=== PATIENT | male | born 1965 | race Hispanic/Latino ===

== ENCOUNTER 2024-02-26 10:27 | Inpatient (IN) | payer OTHER ==
[2024-02-26] VITALS (8 sets, daily range): BP systolic 92–103; BP diastolic 62–65; PULSE 53–56; RESP 12–19; TEMP 98–98.3; O2SAT 92–96
[~2024-02-26] VITALS: Ht 167.6 cm; Wt 54.9 kg
[2024-02-26] MEDS: SODIUM CHLORIDE 0.9% 1000ML 1,000 ML IV STA (11:27)
[2024-02-26 11:47] LABS: BASOPHILS % 0.3 % (0.0-1.0); EOSINOPHILS % 0.1 % (0.0-6.0); HEMATOCRIT 37.8 % (38.2-49.6); HEMOGLOBIN 12.1 g/dL (14.0-18.0); LYMPHOCYTES # (AUTO) 2.7 (1.0-3.2); LYMPHOCYTES % 28.3 % (18.0-39.1); MEAN CORPUSCULAR HEMOGLOBIN 30.9 pg (28-32); MEAN CORPUSCULAR VOLUME 96.7 fL (81-99); MONOCYTES # (AUTO) 0.3 (0.2-0.8); MONOCYTES % 3.6 % (4.4-11.3); NEUTROPHILS # (AUTO) 6.3 (2.1-6.9); NEUTROPHILS % 67.1 % (38.7-80.0); PLATELET COUNT 205 x10e3/uL (140-360); RED BLOOD COUNT 3.91 x10e6/uL (4.3-5.7); RED CELL DISTRIBUTION WIDTH 13.2 % (11.7-14.4); WHITE BLOOD COUNT 9.41 x10e3/uL (4.8-10.8)
[2024-02-26 11:59] LABS: INR 0.95; PROTHROMBIN TIME 13.3 seconds (11.9-14.5)
[2024-02-26] MEDS: ONDANSETRON HCL INJ 2MG/ML 2ML 2 MG/ML VIAL IV STA (12:01)
[2024-02-26 12:09] LABS: ALBUMIN 2.8 g/dL (3.5-5.0); ALBUMIN/GLOBULIN RATIO 0.4 (0.8-2.0); ANION GAP 12.9 mmol/L (8-16); BILIRUBIN,TOTAL 0.6 mg/dL (0.2-1.2); CALCIUM 8.8 mg/dL (8.4-10.2); CREATININE, SERUM 0.91 mg/dL (0.72-1.25); MAGNESIUM 2.1 MG/DL (1.3-2.1); POTASSIUM 3.9 mmol/L (3.5-5.1); TOTAL PROTEIN 9.4 g/dL (6.5-8.1)
[2024-02-26] MEDS ORDERED: IOPAMIDOL 370 MG/ML 100 ML INFUS..BTL INJ ONE (12:12)
[2024-02-26 12:34] LABS: THYROID STIMULATING HORMONE 2.003 uIU/mL (0.350-4.940); TROPONIN I 0.02 ng/mL (0-0.300)
[2024-02-26] MEDS: Doxycycline IV 100 MG in SODIUM CHLORIDE 0.9% 100 ML IV SCH (13:26)
[2024-02-26] MEDS: SODIUM CHLORIDE 0.9% 1000ML 1,000 ML IV SCH (13:34)
[2024-02-26 14:09] LABS: BILIRUBIN,URINE NEGATIVE (NEGATIVE); CLARITY,URINE CLEAR (CLEAR); COLOR,URINE YELLOW (YELLOW); GLUCOSE, URINE NEGATIVE (NEGATIVE); KETONES,URINE TRACE (NEGATIVE); LEUKOCYTE ESTERASE ,URINE NEGATIVE (NEGATIVE); NITRITE,URINE NEGATIVE (NEGATIVE); PH,URINE 7 (5 - 7); PROTEIN,URINE DIPSTICK 1+ (NEGATIVE); URINE UROBILINOGEN 0.2 mg/dL (0.2 - 1)
[2024-02-26 14:18] LABS: BACTERIA,URINE FEW /HPF; RBC,URINE 0-5 /HPF (0-5)
[2024-02-26 14:19] LABS: EPITHELIAL CELLS,URINE FEW /LPF; MUCUS,URINE FEW (RARE)
[2024-02-26] MEDS ORDERED: LIDOCAINE 4% PATCH TP PRN (15:00)
[2024-02-26] MEDS ORDERED: DEXTROSE 50% SYRINGE 50 ML IV PRN (15:00)
[2024-02-26] MEDS ORDERED: SIMETHICONE 80 MG CHEW PO PRN (15:00)
[2024-02-26] MEDS ORDERED: ACETAMINOPHEN 325 MG TAB PO PRN (15:00)
[2024-02-26] MEDS ORDERED: HYDRALAZINE HCL 20 MG/ML VIAL IV PRN (15:00)
[2024-02-26] MEDS ORDERED: DIPHENHYDRAMINE HCL 25 MG CAP PO PRN (15:00)
[2024-02-26] MEDS ORDERED: ALBUTEROL/IPRATROPIUM 3 ML NEB NEB PRN (15:00)
[2024-02-26] MEDS ORDERED: DOCUSATE SODIUM 100 MG CAP PO PRN (15:00)
[2024-02-26 16:56] LABS: HIV 1&2 AB SCREEN ***REACTIVE*** (NONREACTIVE); HIV- 1 P24 AG SCREEN NON-REACTIVE (NONREACTIVE)
[2024-02-26] MEDS: ENOXAPARIN SOD INJ 40 MG/0.4 ML SYR SC SCH (18:12)
[2024-02-26 23:21] LABS: INFLUENZA A NAA NEGATIVE (NEGATIVE); INFLUENZA B NAA NEGATIVE (NEGATIVE)
[2024-02-26] MEDS: METOCLOPRAMIDE HCL 10 MG/2ML VIAL IV SCH (23:59)
[2024-02-27] VITALS (11 sets, daily range): BP systolic 91–108; BP diastolic 56–75; PULSE 55–60; RESP 16–20; TEMP 97.9–98.6; O2SAT 93–98
[2024-02-27 05:55] LABS: BASOPHILS % 0.2 % (0.0-1.0); EOSINOPHILS % 0.3 % (0.0-6.0); HEMATOCRIT 33.1 % (38.2-49.6); HEMOGLOBIN 10.7 g/dL (14.0-18.0); LYMPHOCYTES # (AUTO) 2.5 (1.0-3.2); LYMPHOCYTES % 41.5 % (18.0-39.1); MEAN CORPUSCULAR HGB CONC 32.3 g/dL (31-35); MEAN CORPUSCULAR VOLUME 95.9 fL (81-99); MONOCYTES # (AUTO) 0.3 (0.2-0.8); MONOCYTES % 4.6 % (4.4-11.3); NEUTROPHILS # (AUTO) 3.1 (2.1-6.9); NEUTROPHILS % 52.9 % (38.7-80.0); PLATELET COUNT 186 x10e3/uL (140-360); RED BLOOD COUNT 3.45 x10e6/uL (4.3-5.7); RED CELL DISTRIBUTION WIDTH 12.9 % (11.7-14.4); WHITE BLOOD COUNT 5.91 x10e3/uL (4.8-10.8)
[2024-02-27 06:29] LABS: ALBUMIN 2.2 g/dL (3.5-5.0); ALBUMIN/GLOBULIN RATIO 0.4 (0.8-2.0); ANION GAP 13.7 mmol/L (8-16); BILIRUBIN,TOTAL 0.8 mg/dL (0.2-1.2); CALCIUM 7.9 mg/dL (8.4-10.2); CREATININE, SERUM 0.88 mg/dL (0.72-1.25); POTASSIUM 3.7 mmol/L (3.5-5.1); TOTAL PROTEIN 7.6 g/dL (6.5-8.1)
[2024-02-27 06:55] LABS: CHOL/HDL RATIO 6.7 (3.9-4.7); MAGNESIUM 1.9 MG/DL (1.3-2.1)
[2024-02-27 07:02] LABS: TROPONIN I 0.02 ng/mL (0-0.300)
[2024-02-27 07:15] LABS: THYROID STIMULATING HORMONE 1.567 uIU/mL (0.350-4.940)
[2024-02-27] MEDS ORDERED: PANTOPRAZOLE SOD 40 MG TABEC PO SCH (07:30)
[2024-02-27] MEDS ORDERED: IOPAMIDOL 370 MG/ML 100 ML INFUS..BTL INJ ONE (10:23)
[2024-02-27 10:31] LABS: BAND NEUTROPHILS % (MANUAL) 3 %; LYMPHOCYTES % (MANUAL) 43 % (19-48); NEUTROPHILS % (MANUAL) 54 % (40-74); PLATELET ESTIMATE ADEQUATE; PLATELET MORPHOLOGY COMMENT NORMAL; RBC MORPHOLOGY COMMENT NORMAL
[2024-02-27 15:01] LABS: TROPONIN I 0.02 ng/mL (0-0.300)
[2024-02-27] MEDS: ONDANSETRON HCL INJ 2MG/ML 2ML 2 MG/ML VIAL IV PRN (16:40)
[2024-02-27 17:14] LABS: HIV 1&2 AB SCREEN ***REACTIVE*** (NONREACTIVE); HIV- 1 P24 AG SCREEN NON-REACTIVE (NONREACTIVE)
[2024-02-28] VITALS (10 sets, daily range): BP systolic 96–113; BP diastolic 66–70; PULSE 54–67; RESP 18–20; TEMP 97.7–98.5; O2SAT 93–96
[2024-02-28 05:17] LABS: RAPID PLASMA REAGIN Non Reactive (Non Reactive)
[2024-02-28 06:05] LABS: BASOPHILS % 0.4 % (0.0-1.0); EOSINOPHILS # (AUTO) 0.1 (0.0-0.4); EOSINOPHILS % 1.2 % (0.0-6.0); HEMATOCRIT 33.5 % (38.2-49.6); HEMOGLOBIN 10.3 g/dL (14.0-18.0); LYMPHOCYTES # (AUTO) 2.5 (1.0-3.2); LYMPHOCYTES % 48.5 % (18.0-39.1); MEAN CORPUSCULAR HEMOGLOBIN 31.3 pg (28-32); MEAN CORPUSCULAR HGB CONC 30.7 g/dL (31-35); MEAN CORPUSCULAR VOLUME 101.8 fL (81-99); MONOCYTES # (AUTO) 0.3 (0.2-0.8); MONOCYTES % 6.5 % (4.4-11.3); NEUTROPHILS # (AUTO) 2.2 (2.1-6.9); PLATELET COUNT 213 x10e3/uL (140-360); RED BLOOD COUNT 3.29 x10e6/uL (4.3-5.7); RED CELL DISTRIBUTION WIDTH 12.8 % (11.7-14.4); WHITE BLOOD COUNT 5.05 x10e3/uL (4.8-10.8)
[2024-02-28 06:32] LABS: % IRON SATURATION 20 % (15-50); IRON 32 ug/dL (65-175); TOTAL IRON BINDING CAPACITY 158 ug/dL (261-478); TRANSFERRIN 113 mg/dL (174-364)
[2024-02-28 06:34] LABS: ANION GAP 12.3 mmol/L (8-16); CALCIUM 7.9 mg/dL (8.4-10.2); CREATININE, SERUM 0.79 mg/dL (0.72-1.25)
[2024-02-28 06:42] LABS: POTASSIUM 3.3 mmol/L (3.5-5.1)
[2024-02-28 07:07] LABS: FOLATE 7.3 ng/mL (7.0-15.4)
[2024-02-29] VITALS (9 sets, daily range): BP systolic 106–154; BP diastolic 68–76; PULSE 55–65; RESP 18–20; TEMP 97.7–98.7; O2SAT 90–98
[2024-02-29] MEDS: IRON SUCROSE 100 MG in SODIUM CHLORIDE 0.9% 100 ML IV SCH (08:37)
[2024-02-29] MEDS: MELATONIN 5 MG TABLET PO PRN (20:59)
[2024-02-29] MEDS: BENZONATATE 100 MG CAP PO PRN (20:59)
[2024-03-01] VITALS (10 sets, daily range): BP systolic 95–117; BP diastolic 60–73; PULSE 54–71; RESP 16–20; TEMP 97–98.4; O2SAT 92–98
[2024-03-01 14:56] LABS: HIV-1 RNA,QUANT. PCR C/ML 4.201 (.)
[2024-03-02] VITALS (8 sets, daily range): BP systolic 99–125; BP diastolic 59–73; PULSE 55–71; RESP 16–21; TEMP 97.9–98.6; O2SAT 94–98
[2024-03-02] MEDS: POTASSIUM CHLORIDE 20 MEQ TAB CR PO PRN (17:18)
[2024-03-03 07:34] LABS: HEPATITIS A ANTIBODY IGM (P) Negative; HEPATITIS B CORE IGM (P) Negative; HEPATITIS B SURFACE AG (P) Negative; HEPATITIS C ANTIBODY Non Reactive
[2024-03-07 17:59] LABS: HIV 2 ABS EIA Non Reactive; HIV RNA QUAL Reactive
== END 2024-03-02 18:48 | disposition home or self-care (01) | DRG 177 ==
LOC: ER 10:35 → ERHOLD 13:22 → MED/SURG2 15:42
PROVIDERS: ADMIT Internal Medicine; ATTEND Internal Medicine
DX: J69.0 Pneumonitis due to inhalation of food and vomit (principal); E43 Unspecified severe protein-calorie malnutrition; D84.9 Immunodeficiency, unspecified; K92.1 Melena; Z68.1 Body mass index [BMI] 19.9 or less, adult; R62.7 Adult failure to thrive; K22.89 Other specified disease of esophagus; R13.10 Dysphagia, unspecified; R63.4 Abnormal weight loss; K76.0 Fatty (change of) liver, not elsewhere classified; D64.9 Anemia, unspecified; R53.81 Other malaise; R59.0 Localized enlarged lymph nodes; R06.03 Acute respiratory distress; R00.1 Bradycardia, unspecified; K59.00 Constipation, unspecified; R11.0 Nausea; R10.13 Epigastric pain; Z53.09 Procedure and treatment not carried out because of other contraindication
CPT/HCPCS: 36415; 70450; 71045; 71260; 72125; 74177; 80048; 80053; 80061; 81001; 82232; 82550; 82607; 82746; 83036; 83540; 83735; 83880; 84100; 84132; 84443; 84466; 84484; 85025; 85045; 85610; 85730; 86592; 86635; 86689; 87040; 87070; 87086; 87205; 87385; 87390; 87535; 87536; 93005; 93306; 94799; 99284; G0433; G0435; J1650; J1756; J2405; J2470; J2543; J2765; J7030; J7050; Q9967

== ENCOUNTER 2024-04-09 13:35 | Inpatient (IN) | payer OTHER ==
[~2024-04-09] VITALS: Ht 160 cm; Wt 54.9 kg
[2024-04-09 14:20] LABS: BASOPHILS % 0.3 % (0.0-1.0); HEMATOCRIT 34.3 % (38.2-49.6); HEMOGLOBIN 11.4 g/dL (14.0-18.0); LYMPHOCYTES # (AUTO) 1.4 (1.0-3.2); LYMPHOCYTES % 15.4 % (18.0-39.1); MEAN CORPUSCULAR HEMOGLOBIN 30.6 pg (28-32); MEAN CORPUSCULAR HGB CONC 33.2 g/dL (31-35); MEAN CORPUSCULAR VOLUME 92.2 fL (81-99); MONOCYTES # (AUTO) 0.2 (0.2-0.8); MONOCYTES % 2.5 % (4.4-11.3); NEUTROPHILS # (AUTO) 7.3 (2.1-6.9); NEUTROPHILS % 81.6 % (38.7-80.0); PLATELET COUNT 251 x10e3/uL (140-360); RED BLOOD COUNT 3.72 x10e6/uL (4.3-5.7); RED CELL DISTRIBUTION WIDTH 15.7 % (11.7-14.4); WHITE BLOOD COUNT 8.95 x10e3/uL (4.8-10.8)
[2024-04-09 14:35] LABS: CLARITY,URINE CLEAR (CLEAR); COLOR,URINE YELLOW (YELLOW); GLUCOSE, URINE NEGATIVE (NEGATIVE); INR 0.98; KETONES,URINE NEGATIVE (NEGATIVE); LEUKOCYTE ESTERASE ,URINE NEGATIVE (NEGATIVE); NITRITE,URINE NEGATIVE (NEGATIVE); PH,URINE 5.5 (5 - 7); PROTEIN,URINE DIPSTICK >=300 (NEGATIVE); PROTHROMBIN TIME 13.6 seconds (11.9-14.5)
[2024-04-09 14:36] LABS: ALBUMIN 2.6 g/dL (3.5-5.0); ALBUMIN/GLOBULIN RATIO 0.4 (0.8-2.0); ANION GAP 14.6 mmol/L (8-16); BILIRUBIN,TOTAL 1.9 mg/dL (0.2-1.2); BILIRUBIN,URINE NEGATIVE (NEGATIVE); CALCIUM 9.4 mg/dL (8.4-10.2); CREATININE, SERUM 1.11 mg/dL (0.72-1.25); PARTIAL THROMBOPLASTIN TIME 32.6 seconds (23.8-35.5); POTASSIUM 3.6 mmol/L (3.5-5.1); TOTAL PROTEIN 8.9 g/dL (6.5-8.1); URINE UROBILINOGEN 0.2 mg/dL (0.2 - 1)
[2024-04-09 14:54] LABS: BACTERIA,URINE MANY /HPF; EPITHELIAL CELLS,URINE FEW /LPF; RBC,URINE 0-5 /HPF (0-5); WBC,URINE (MAN) 0-5 /HPF (0-5)
[2024-04-09] MEDS: ACETAMINOPHEN 325 MG TAB PO ONE (16:34)
[2024-04-09] MEDS: SODIUM CHLORIDE 0.9% 1000ML 1,000 ML IV STA ×2 (16:35)
[2024-04-09] MEDS: CEFTRIAXONE 2 GM in SODIUM CHLORIDE 0.9% 100 ML IV ONE (16:40)
[2024-04-09 17:50] LABS: INFLUENZA A AG NEGATIVE (NEGATIVE); INFLUENZA B AG NEGATIVE (NEGATIVE)
[2024-04-09 17:51] LABS: CORONAVIRUS COVID-19 AG NEGATIVE (NEGATIVE)
[2024-04-09 18:03] VITALS: PULSE 85; RESP 30; O2SAT 94
[2024-04-09] MEDS: ALBUTEROL/IPRATROPIUM 3 ML NEB NEB PRN (18:06)
[2024-04-09] MEDS: SODIUM CHLORIDE 0.9% 1000ML 1,000 ML IV SCH (18:10)
[2024-04-09 18:30] VITALS: PULSE 89; RESP 23; TEMP 99
[2024-04-09 20:30] VITALS: BP 91/58; PULSE 78; RESP 21; TEMP 97.9; O2SAT 95
[2024-04-09 21:00] VITALS: BP 91/58; PULSE 78; RESP 21; TEMP 97.9; O2SAT 95
[2024-04-10] VITALS (12 sets, daily range): BP systolic 94–114; BP diastolic 63–70; PULSE 67–90; RESP 17–30; TEMP 97.3–98.9; O2SAT 93–99
[2024-04-10 03:16] LABS: CREATINE KINASE 16 IU/L (30-200)
[2024-04-10 03:27] LABS: TROPONIN I < 0.001 ng/mL (0-0.300)
[2024-04-10 07:24] LABS: BASOPHILS % 0.9 % (0.0-1.0); HEMATOCRIT 34.3 % (38.2-49.6); HEMOGLOBIN 11.2 g/dL (14.0-18.0); LYMPHOCYTES # (AUTO) 0.8 (1.0-3.2); LYMPHOCYTES % 19.2 % (18.0-39.1); MEAN CORPUSCULAR HEMOGLOBIN 31.4 pg (28-32); MEAN CORPUSCULAR HGB CONC 32.7 g/dL (31-35); MEAN CORPUSCULAR VOLUME 96.1 fL (81-99); MONOCYTES # (AUTO) 0.1 (0.2-0.8); MONOCYTES % 2.7 % (4.4-11.3); NEUTROPHILS # (AUTO) 3.3 (2.1-6.9); NEUTROPHILS % 76.1 % (38.7-80.0); PLATELET COUNT 210 x10e3/uL (140-360); RED BLOOD COUNT 3.57 x10e6/uL (4.3-5.7); RED CELL DISTRIBUTION WIDTH 15.9 % (11.7-14.4); WHITE BLOOD COUNT 4.38 x10e3/uL (4.8-10.8)
[2024-04-10 07:46] LABS: ALBUMIN 1.9 g/dL (3.5-5.0); ALBUMIN/GLOBULIN RATIO 0.4 (0.8-2.0); ANION GAP 11.7 mmol/L (8-16); BILIRUBIN,TOTAL 1.6 mg/dL (0.2-1.2); CREATININE, SERUM 0.82 mg/dL (0.72-1.25); POTASSIUM 3.7 mmol/L (3.5-5.1); TOTAL PROTEIN 6.9 g/dL (6.5-8.1)
[2024-04-10] MEDS ORDERED: MELATONIN 3 MG TAB PO PRN (08:30)
[2024-04-10] MEDS ORDERED: METOPROLOL TARTRATE INJ 1 MG/ML VIAL IV PRN (08:30)
[2024-04-10] MEDS ORDERED: ALBUTEROL/IPRATROPIUM 3 ML NEB NEB PRN (08:30)
[2024-04-10] MEDS ORDERED: SIMETHICONE 80 MG CHEW PO PRN (08:30)
[2024-04-10] MEDS ORDERED: DOCUSATE SODIUM 100 MG CAP PO PRN (08:30)
[2024-04-10] MEDS: Vancomycin IV 1 GM in SODIUM CHLORIDE 0.9% 250ML 250 ML IV ONE (08:58)
[2024-04-10] MEDS: ACETAMINOPHEN 325 MG TAB PO PRN (09:41)
[2024-04-10 11:07] LABS: CREATINE KINASE 15 IU/L (30-200)
[2024-04-10 11:21] LABS: TROPONIN I < 0.001 ng/mL (0-0.300)
[2024-04-10] MEDS: PROMETHAZINE 12.5MG/ NACL 0.9% 12.5 MG/50 ML BAG IV PRN (11:42)
[2024-04-10 13:44] LABS: LYMPHOCYTES % (MANUAL) 21 % (19-48); MONOCYTES % (MANUAL) 3 % (3.4-9.0); NEUTROPHILS % (MANUAL) 72 % (40-74)
[2024-04-10 13:45] LABS: BAND NEUTROPHILS % (MANUAL) 3 %; BASOPHILS % (MANUAL) 1 % (0-1.5); PLATELET ESTIMATE ADEQUATE; PLATELET MORPHOLOGY COMMENT NORMAL; RBC MORPHOLOGY COMMENT NORMAL
[2024-04-10 15:53] LABS: HIV 1&2 AB SCREEN ***REACTIVE*** (NONREACTIVE); HIV- 1 P24 AG SCREEN NON-REACTIVE (NONREACTIVE)
[2024-04-10] MEDS: FAMOTIDINE 20 MG TAB PO SCH (16:50)
[2024-04-10] MEDS: ENOXAPARIN SOD INJ 40 MG/0.4 ML SYR SC SCH (16:51)
[2024-04-10] MEDS: TRIMETHOPRIM/SULFAMETHOXAZOLE 160-800 MG TAB PO SCH (20:38)
[2024-04-11] VITALS (10 sets, daily range): BP systolic 99–115; BP diastolic 53–88; PULSE 75–96; RESP 17–20; TEMP 97.5–100.1; O2SAT 95–99
[2024-04-11 06:37] LABS: CREATINE KINASE 11 IU/L (30-200)
[2024-04-11 06:47] LABS: TROPONIN I < 0.001 ng/mL (0-0.300)
[2024-04-11] MEDS: CEFTRIAXONE 2 GM in SODIUM CHLORIDE 0.9% 100 ML IV SCH (09:04)
[2024-04-11] MEDS: PREDNISONE 20 MG TAB PO SCH (09:05)
[2024-04-11 12:12] LABS: % CD 4 POSITIVE LYMPHOCYTES 16.4 % (30.8-58.5); BASOPHILS % 0 % (Not Estab.); CD4 HELPER ABSOLUTE COUNT 197 /uL (359-1519); HEMATOCRIT 31.3 % (37.5-51.0); HEMOGLOBIN 10.5 g/dL (13.0-17.7); LYMPHOCYTES % 25 % (Not Estab.); LYMPHOCYTES, ABSOLUTE 1.2 x10E3/uL (0.7-3.1); MCHC 33.5 g/dL (31.5-35.7); MCV 92 fL (79-97); PLATELETS 226 x10E3/uL (150-450); RBC 3.39 x10E6/uL (4.14-5.80); RDW 14.2 % (11.6-15.4)
[2024-04-11 12:23] LABS: IMMATURE GRANULOCYTES, ABS 0.1 x10E3/uL (0.0-0.1)
[2024-04-12] VITALS (10 sets, daily range): BP systolic 94–118; BP diastolic 64–79; PULSE 63–86; RESP 17–20; TEMP 97–99.4; O2SAT 95–100
[2024-04-12] MEDS ORDERED: BENZOCAINE 0.18 OZ ORAL GEL TOP PRN (17:30)
[2024-04-12 22:31] LABS: HIV-1 RNA,QUANT. PCR C/ML 2.959 (.)
[2024-04-13] VITALS (7 sets, daily range): BP systolic 93–107; BP diastolic 60–74; PULSE 60–81; RESP 15–20; TEMP 98.2–99.1; O2SAT 92–99
[2024-04-13] MEDS: PREDNISONE 20 MG TAB PO SCH (08:05)
[2024-04-14] VITALS (10 sets, daily range): BP systolic 98–114; BP diastolic 66–75; PULSE 58–78; RESP 15–20; TEMP 97.6–98.5; O2SAT 95–100
[2024-04-15 07:28] LABS: BILIRUBIN,DIRECT 0.2 mg/dL (0.0-0.5); BILIRUBIN,TOTAL 0.4 mg/dL (0.2-1.2); TOTAL PROTEIN 6.7 g/dL (6.5-8.1)
[2024-04-15 07:56] VITALS: BP 107/75; PULSE 58; RESP 18; TEMP 97.6; O2SAT 100
[2024-04-15 08:42] VITALS: BP 90/75; PULSE 63; RESP 20; TEMP 97.5; O2SAT 95
[2024-04-15 10:00] VITALS: PULSE 81; RESP 18; O2SAT 96
[2024-04-15 10:08] VITALS: PULSE 80; RESP 18; O2SAT 94
[2024-04-15] MEDS ORDERED: BENZONATATE100 MG PO (10:59)
[2024-04-15] MEDS ORDERED: Trimethoprim/Sulfamethoxazole PO (10:59)
[2024-04-15] MEDS ORDERED: FAMOTIDINE20 MG PO (10:59)
[2024-04-15] MEDS ORDERED: PREDNISONE20 MG PO (10:59)
[2024-04-15] MEDS ORDERED: BACTRIM DS TAB1 EACH PO (11:00)
[2024-04-17 06:17] LABS: HEPATITIS A ANTIBODY IGM (P) Negative; HEPATITIS B CORE IGM (P) Negative; HEPATITIS B SURFACE AG (P) Negative
[2024-04-17 06:18] LABS: HEPATITIS C ANTIBODY Non Reactive
== END 2024-04-15 12:30 | disposition home health service (06) | DRG 974 ==
LOC: ER 13:57 → ERHOLD 17:34 → MED/SURG3 20:18
PROVIDERS: ADMIT Internal Medicine; ATTEND Internal Medicine
DX: B20 Human immunodeficiency virus [HIV] disease (principal); A40.3 Sepsis due to Streptococcus pneumoniae; A41.89 Other specified sepsis; R65.20 Severe sepsis without septic shock; J96.01 Acute respiratory failure with hypoxia; E87.20 Acidosis, unspecified; E87.1 Hypo-osmolality and hyponatremia; N39.0 Urinary tract infection, site not specified; B59 Pneumocystosis; J13 Pneumonia due to Streptococcus pneumoniae; Z99.81 Dependence on supplemental oxygen; R00.0 Tachycardia, unspecified; I95.9 Hypotension, unspecified; R74.8 Abnormal levels of other serum enzymes; G43.909 Migraine, unspecified, not intractable, without status migrainosus; Z11.52 Encounter for screening for COVID-19; Z79.899 Other long term (current) drug therapy
CPT/HCPCS: 36415; 71045; 71250; 80053; 80076; 81001; 82550; 83605; 84484; 85025; 85610; 85730; 86361; 86689; 87040; 87071; 87086; 87186; 87205; 87390; 87536; 93005; 94640; 94799; 99284; G0433; G0435; J0696; J1650; J2543; J2550; J7030; J7050; J7512

== ENCOUNTER 2024-05-06 08:51 | Emergency (ER) | payer OTHER ==
[~2024-05-06] VITALS: Ht 160 cm; Wt 54.9 kg
[~2024-05-06 08:51] MED LIST: BACTRIM DS TAB1 EACH PO; BENZONATATE100 MG PO; FAMOTIDINE20 MG PO; PREDNISONE20 MG PO; Trimethoprim/Sulfamethoxazole PO
[2024-05-06 09:46] VITALS: PULSE 72; RESP 16; TEMP 98.1
[2024-05-06] MEDS ORDERED: BACTRIM DS TAB1 EACH PO (10:21)
[2024-05-06 10:40] VITALS: BP 101/68; PULSE 68; RESP 16; TEMP 98.1; O2SAT 98
== END 2024-05-06 10:44 | disposition home or self-care (01) ==
LOC: ER 09:30
DX: R20.0 Anesthesia of skin (principal); B20 Human immunodeficiency virus [HIV] disease
CPT/HCPCS: 99283